=== PATIENT | female | born 1970 | race Caucasian/White ===

== ENCOUNTER 2016-04-30 13:06 | Inpatient (IN) | payer OTHER ==
[2016-04-30] MEDS ORDERED: fentaNYL* 50 MCG/ML 2 ML VIAL (100 MCG VIAL) ONE ×2 (13:30→13:35)
[2016-04-30] MEDS ORDERED: Midazolam* 1 MG/ML 10 ML VIAL (10 MG) ONE (13:35)
[2016-04-30] MEDS ORDERED: NS 0.9% 1000 ML* 1,000 ML IV ONE (13:41)
[2016-04-30 13:58] LABS: Hematocrit 42 % (35-47); Hemoglobin 14.4 g/dl (12.0-16.0); Mean Corpuscular HGB Conc 34 g/dl (31-36); Mean Corpuscular Hemoglobin 31 pg (27-31); Mean Corpuscular Volume 91 fL (80-97); Mean Platelet Volume 7 um3 (7.4-10.4); Red Blood Count 4.62 10^6/ul (4.0-5.4); Red Cell Distribution Width 13 % (10.5-15); White Blood Count 5.9 10^3/ul (3.5-10.8)
[2016-04-30 14:10] LABS: Albumin 4.6 g/dL (3.2-5.2); C Reactive Protein 4.53 mg/L (< 5.00); EGFR African American 101.8 (>60); EGFR Non-African American 79.2 (>60); Globulin 3.4 g/dL (2-4); Potassium 3.2 mmol/L (3.5-5.0); Total Bilirubin 0.5 mg/dL (0.2-1.0)
--- NOTE | 2016-04-30 14:51 | RAD ---
INDICATION: Leg and ankle pain after a fall down the steps COMPARISON: None. TECHNIQUE: 3 views of the left lower leg and 2 views of the left ankle were obtained. FINDINGS: Evaluation is slightly obscured by the patient's overlying splint. There are minimally displaced and comminuted fractures obliquely oriented involving the distal metaphyses of the left tibia and fibula. Elsewhere the bones appear to be intact. Inadequate positioning prevents reliable evaluation of the ankle mortise. Bones of the foot where visualized appear to be intact. IMPRESSION: MINIMALLY DISPLACED AND COMMINUTED OBLIQUE FRACTURES INVOLVING THE DISTAL LEFT TIBIA AND FIBULA.
[2016-04-30] MEDS ORDERED: fentaNYL* 50 MCG/ML 2 ML VIAL (100 MCG VIAL) IV SLOW PU ONE ×2 (15:16→15:25)
[2016-04-30] MEDS ORDERED: Midazolam* 1 MG/ML 10 ML VIAL (10 MG) IV ONE (15:25)
[2016-04-30] MEDS ORDERED: Propofol* 10 MG/ML 20 ML BTL IV PUSH ONE (15:46)
[2016-04-30] MEDS ORDERED: KETAMINE HCL* 50 MG/ML 10 ML VIAL ONE (15:46)
[2016-04-30] MEDS ORDERED: Lidocaine 2% PF * 5 ML VIAL ONE (15:46)
[2016-04-30] MEDS ORDERED: Dexamethasone IV* 4 MG/ML 1 ML (4 MG) ONE (15:46)
[2016-04-30] MEDS ORDERED: Ondansetron INJ* 2 MG/ML VIAL ONE (15:46)
[2016-04-30] MEDS ORDERED: Ketorolac INJ* 30 MG/ML 1 ML VIAL ONE (15:46)
[2016-04-30] MEDS ORDERED: fentaNYL* 50 MCG/ML 5 ML VIAL (250 MCG VIAL) ONE (15:46)
[2016-04-30] MEDS ORDERED: Midazolam* 1 MG/ML 5 ML VIAL (5 MG) ONE (15:46)
--- NOTE | 2016-04-30 15:46 | ED ---
Fracisco Gonzalez Karl, scribed for Gildardo King MD on 04/30/16 at 1313 . Lower Extremity - HPI Summary HPI Summary: 46 y/o F c/o an injury to her LLE. Pt is in severe pain and her left ankle/ tibia is visibly deformed through her boot. Pt stated she fell down some stairs very recently and immediately came to the ED. Pt is visibly in 10/10 severe pain. - History of Current Complaint Stated Complaint: LT LEG INJURY Hx Obtained From: Patient Mechanism Of Injury: Fall From A Standing Position - down 4 steps Onset of Pain: Immediate Onset/Duration: Still Present Severity Initially: Severe Severity Currently: Severe Pain Intensity: 10 - LLE Pain Pain Scale Used: 0-10 Numeric Timing: Constant Location: Is Discrete @ - LLE - Allergies/Home Medications Allergies/Adverse Reactions: Allergies Allergy/AdvReac Type Severity Reaction Status Date / Time Acetaminophen [From Tylenol] Allergy Nausea And Verified 09/24/12 14:06 Vomiting PMH/Surg Hx/FS Hx/Imm Hx Endocrine/Hematology History: Reports: Hx Thyroid Disease - hypothyroidism Denies: Hx Anticoagulant Therapy Respiratory History: Denies: Hx Asthma Infectious Disease History: Denies: Hx Hepatitis, Hx Human Immunodeficiency Virus (HIV) - Family History Family History: Pt is in too much pain to provide family hx - Social History Substance Use Type: Reports: None Hx Tobacco Use: No Review of Systems Constitutional: Negative Eyes: Negative ENT: Negative Cardiovascular: Negative Respiratory: Negative Gastrointestinal: Negative Genitourinary: Negative Musculoskeletal: Other - LLE pain from visibly deformed leg Skin: Negative Neurological: Negative Psychological: Normal All Other Systems Reviewed And Are Negative: Yes Physical Exam Vital Signs On Initial Exam: Initial Vitals Temp Pulse Resp BP Pulse Ox 97.3 F 96 22 158/89 100 04/30/16 13:07 04/30/16 13:07 04/30/16 13:07 04/30/16 13:07 04/30/16 13:07 Diagnostics - Vital Signs Vital Signs Temp Pulse Resp BP Pulse Ox 04/30/16 15:32 18 04/30/16 15:16 19 04/30/16 15:15 91 21 150/82 100 04/30/16 15:05 86 18 143/79 100 04/30/16 15:00 83 18 145/82 100 04/30/16 14:55 88 16 153/79 100 04/30/16 14:50 91 16 154/81 100 04/30/16 14:45 87 15 149/75 100 04/30/16 14:40 88 16 138/79 100 04/30/16 14:35 88 15 146/76 99 04/30/16 14:30 87 17 154/81 99 04/30/16 14:25 85 16 151/77 99 04/30/16 14:20 88 17 147/88 99 04/30/16 14:15 89 18 145/84 98 04/30/16 14:10 90 16 154/88 98 04/30/16 14:05 94 19 170/86 98 04/30/16 14:00 93 16 158/85 99 04/30/16 13:55 92 17 154/85 99 04/30/16 13:50 91 17 151/86 98 04/30/16 13:45 93 16 153/77 97 04/30/16 13:35 80 12 154/82 99 04/30/16 13:33 82 11 164/86 96 04/30/16 13:25 88 14 163/86 98 04/30/16 13:19 157/88 04/30/16 13:16 95 100 04/30/16 13:14 158/89 04/30/16 13:07 97.3 F 96 22 158/89 100 - Laboratory Lab Results: Lab Results 04/30/16 04/30/16 04/30/16 Range/Units 13:26 13:26 13:26 WBC 5.9 (3.5-10.8) 10^3/ul RBC 4.62 (4.0-5.4) 10^6/ul Hgb 14.4 (12.0-16.0) g/dl Hct 42 (35-47) % MCV 91 (80-97) fL MCH 31 (27-31) pg MCHC 34 (31-36) g/dl RDW 13 (10.5-15) % Plt Count 260 (150-450) 10^3/ul MPV 7 L (7.4-10.4) um3 Neut % (Auto) 67.2 (38-83) % Lymph % (Auto) 22.0 L (25-47) % White % (Auto) 9.4 H (1-9) % Eos % (Auto) 0.5 (0-6) % Baso % (Auto) 0.9 (0-2) % Absolute Neuts (auto) 4.0 (1.5-7.7) 10^3/ul Absolute Lymphs (auto) 1.3 (1.0-4.8) 10^3/ul Absolute Monos (auto) 0.6 (0-0.8) 10^3/ul Absolute Eos (auto) 0 (0-0.6) 10^3/ul Absolute Basos (auto) 0.1 (0-0.2) 10^3/ul Absolute Nucleated RBC 0 10^3/ul Nucleated RBC % 0.1 Sodium 136 (133-145) mmol/L Potassium 3.2 L (3.5-5.0) mmol/L Chloride 102 (101-111) mmol/L Carbon Dioxide 27 (22-32) mmol/L Anion Gap 7 (2-11) mmol/L BUN 7 (6-24) mg/dL Creatinine 0.78 (0.51-0.95) mg/dL Est GFR ( Amer) 101.8 (>60) Est GFR (Non-Af Amer) 79.2 (>60) BUN/Creatinine Ratio 9.0 (8-20) Glucose 88 (70-100) mg/dL Lactic Acid 1.8 (0.5-2.0) mmol/L Calcium 9.0 (8.6-10.3) mg/dL Total Bilirubin 0.50 (0.2-1.0) mg/dL AST 23 (13-39) U/L ALT 21 (7-52) U/L Alkaline Phosphatase 71 (34-104) U/L C-Reactive Protein 4.53 (< 5.00) mg/L Total Protein 8.0 (6.4-8.9) g/dL Albumin 4.6 (3.2-5.2) g/dL Globulin 3.4 (2-4) g/dL Albumin/Globulin Ratio 1.4 (1-3) Result Diagrams: 04/30/16 13:26 04/30/16 13:26 Lab Statement: Any lab studies that have been ordered have been reviewed, and results considered in the medical decision making process. - Radiology XR LLE Xray Interpretation: Positive (See Comments) Radiology Interpretation Completed By: Radiologist - IMPRESSION: MINIMALLY DISPLACED AND COMMINUTED OBLIQUE FRACTURES INVOLVING THE DISTAL LEFT TIBIA AND FIBULA. XR Left Ankle Xray Interpretation: Positive (See Comments) Radiology Interpretation Completed By: Radiologist - IMPRESSION: MINIMALLY DISPLACED AND COMMINUTED OBLIQUE FRACTURES INVOLVING THE DISTAL LEFT TIBIA AND FIBULA. Lower Extremity Course/Dx - Course Course Of Treatment: PROCEDURE NOTE: Procedural Sedation. Indications: [place] Protocol: a timeout was performed and the correct patient and site were verified. Consent: The risks and benefits of monitored anesthesia care, including the risk of aspiration, deep sedation requiring airway management including possible intubation, nausea and vomiting and the risks of not performing the procedure, including severe pain and inability to complete the procedure, were all discussed with the patient. The alternatives of performing the procedure, including local anesthesia and IV analgesia, also discussed. The patient has a ride home available. ASA Class: II-mild systemic disease. Pre- anesthesia evaluation, including history, exam, and informed consent is documented in the ED note above. Monitoring: Continuous monitoring of heart rate, respiratory rate, pulse oximetry and ETCO2. Supplemental oxygen prior to and during procedure via nasal cannula. Resuscitation equipment available at the bedside during sedation. The patient received Versed 8 mg and Fentanyl 150 mcg and dosages were recorded on the sedation form. The patient was recovered from the sedation without complication or incident. Patient returned to pre- sedation level of awareness. The monitoring was discontinued at this time. Post -anesthesia evaluation: Respiratory function, cardiovascular function, temperature, and mental status did return to pre-anesthetic state. Pain is controlled Assessment/Plan: 46 y/o F c/o an injury to her LLE. Pt is in severe pain and her left ankle/tibia is visibly deformed through her boot. Pt stated she fell down some stairs very recently and immediately came to the ED. Pt is visibly in 10/10 severe pain. Blood work WNL except for hypokalemia. She was given potassium chloride x 3 runs. CXR: No acute cardiopulmonary pathology. EKG: NSR at BPM w/o HUGO. Physical exam reveals an unstable LLE, with deformity. Good pedal pulses. Conscious sedation was performed w/o complications. Patient tolerated well the procedure. See procedure note. I place a sugar tongue cast after I stabilized the LE. She continues to have good pulses. I discussed the case with Dr. Antonio (Orthopedics) and after the review of the films he decided to admit patient to his services for surgical repair. At this point the patient is hemodynamically stable and alert and oriented x 3. - Diagnoses Differential Diagnosis/HQI/PQRI: Positive: Dislocation, Fracture (Closed), Sprain, Strain, Tendonitis Provider Diagnoses: Tibia/fibula fracture - Physician Notifications Discussed Care of Patient With: Dr. Antonio (Ortho) at 14:27 who agreed to look at the pt's imaging and call back. Dr. Antonio at 15:04 who advised admitting the pt so that she can be seen in the OR. Discharge - Discharge Plan Condition: Stable Disposition: ADMITTED TO [facility] The documentation as recorded by the Fracisco garg Karl accurately reflects the service I personally performed and the decisions made by , Gildardo King MD.
[2016-04-30] MEDS ORDERED: KCL 10 MEQ/50 ML IVPREMIX* 10 MEQ/50 ML BAG IV SCH (16:00)
[2016-04-30] MEDS ORDERED: ceFAZolin 1 GM in Dextrose (*) 1 GM/50 ML BAG IVPB SCH (16:00)
[2016-04-30] MEDS ORDERED: ceFAZolin 2 GM PREMIX (*) 2 GM/50 ML BAG IVPB ONE (16:22)
--- NOTE | 2016-04-30 16:26 | RAD ---
INDICATION: Right tib-fib fracture COMPARISON: None. TECHNIQUE: Single portable AP view of the chest was obtained. FINDINGS: Image quality is limited by the inherent inferiority of a portable chest x-ray. The heart and mediastinum exhibit normal size and contour. The lungs are grossly clear. There is no evidence of a large pleural effusion. Visualized bones are normal for the patient's age. IMPRESSION: No radiographic evidence for acute cardiopulmonary abnormality on this single AP view chest x-ray.
[2016-04-30] MEDS ORDERED: Bupivacaine 0.5% SDV PF* 30 ML VIAL ONE (16:31)
[2016-04-30] MEDS ORDERED: Famotidine IV* 10 MG/ML 2 ML (20 mg) ONE (16:32)
[2016-04-30] MEDS ORDERED: Metoclopramide IV* 5 MG/ML 2 ML VIAL ONE (17:20)
[2016-04-30] MEDS ORDERED: HYDROmorphone INJ* 1 MG/ML CARPUJECT SYRINGE ONE (17:51)
[2016-04-30] MEDS ORDERED: HYDROmorphone INJ* 1 MG/ML CARPUJECT SYRINGE IV PRN (18:26)
[2016-04-30] MEDS ORDERED: fentaNYL* 50 MCG/ML 2 ML VIAL (100 MCG VIAL) IV PRN (18:26)
[2016-04-30] MEDS ORDERED: Ondansetron INJ* 2 MG/ML VIAL IV PRN (18:26)
--- NOTE | 2016-04-30 20:22 | HP ---
HISTORY AND PHYSICAL: DATE OF ADMISSION: 04/30/16 HISTORY OF PRESENT ILLNESS: The patient was descending stairs outside of her house today at about 12:30 when she slipped and sustained a left closed tibia/ fibula fracture. This was an isolated injury and she was unable to bear weight. It was a closed injury. She was brought to the emergency room by her mother and father and now accompanied by her . She complains of pain at about an 8/10 level. She splinted and has intact sensation to the foot. Admission radiographs show a spiral junction mid third, distal third tibia/ fibula fracture. Plan at this point will be intramedullary nailing. The patient understands the nature of the surgery and the indications for the same. 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 MEDICATIONS: Her only medication is levothyroxine 125 mcg per day. ALLERGIES: She has an allergy to TYLENOL. SOCIAL HISTORY: She does not smoke. REVIEW OF SYSTEMS: She has been healthy otherwise recently with denial of chest pain, shortness of breath, abdominal distress, urination issues, diabetes , depression or anxiety. PHYSICAL EXAMINATION GENERAL: She is a healthy-appearing woman, in no acute distress. She has appropriate mood and affect. HEENT: Oropharynx is clear. NECK: Supple. CHEST: Clear to auscultation at all lung espana. I do not hear any wheezing or rales. CARDIAC: Shows prominent heart sounds. Regular rate. No extra sounds noted. ABDOMEN: Soft, large, doughy, nontender. EXTREMITIES: Shows her to have a well-splinted left tibia fracture. The toes themselves are warm and sensate. IMPRESSION: Closed tibia/fibular fracture left side. PLAN: Intramedullary nailing. This has been discussed with , parents and the patient. [id number]/[facility] #: [id number] MTDD
[2016-04-30] MEDS: oxyCODONE TAB* 5 MG TAB PO PRN (20:31)
[2016-04-30] MEDS: Enoxaparin(*) 40 MG/0.4 ML SYR SUBCUT SCH (20:32)
[2016-04-30] MEDS: Morphine INJ* 2 MG/ML 1 ML CARPUJECT IV PRN (22:40)
[2016-05-01] MEDS: oxyCODONE TAB* 5 MG TAB PO PRN ×6 (01:19→22:07)
[2016-05-01] MEDS: ceFAZolin 1 GM in Dextrose (*) 1 GM/50 ML BAG IVPB SCH ×3 (01:19→17:23)
[2016-05-01] MEDS: Ondansetron INJ* 2 MG/ML VIAL IV PRN ×2 (03:07→12:52)
[2016-05-01] MEDS: Levothyroxine TAB* 125 MCG TAB PO SCH (05:55)
[2016-05-01] MEDS ORDERED: Levothyroxine TAB (NF) 175 MCG TAB (AUTOSUB 100 MCG + 75 MCG TAB) PO SCH (06:00)
[2016-05-01] MEDS: Morphine INJ* 2 MG/ML 1 ML CARPUJECT IV PRN (08:01)
--- NOTE | 2016-05-01 09:16 | PN ---
Progress Note - Progress Note SOAP: Subjective: [Pt reports pain 8/10. Has been elevating LLE. Denies CP/SOB/nausea. Has been OOB with assistance. Denies N/T LLE.] Objective: [A and O x 3 Appears to be resting comfortably and in NAD despite rate of pain level. LLE dressing/splint C/D/I. Dressing was taken down slightly to palpate DP pulse which was 2+. Dressing then reapplied. Able to wiggle toes. Sensation intact. Vital Signs: Temp Pulse Resp BP Pulse Ox 99.7 F 105 16 125/70 99 05/01/16 07:38 05/01/16 07:38 05/01/16 09:10 05/01/16 07:38 05/01/16 07:38 Laboratory Results - last 24 hr 04/30/16 04/30/16 04/30/16 13:26 13:26 13:26 WBC 5.9 RBC 4.62 Hgb 14.4 Hct 42 MCV 91 MCH 31 MCHC 34 RDW 13 Plt Count 260 MPV 7 L Neut % (Auto) 67.2 Lymph % (Auto) 22.0 L [place] % (Auto) 9.4 H Eos % (Auto) 0.5 Baso % (Auto) 0.9 Absolute Neuts (auto) 4.0 Absolute Lymphs (auto) 1.3 Absolute Monos (auto) 0.6 Absolute Eos (auto) 0 Absolute Basos (auto) 0.1 Absolute Nucleated RBC 0 Nucleated RBC % 0.1 Sodium 136 Potassium 3.2 L Chloride 102 Carbon Dioxide 27 Anion Gap 7 BUN 7 Creatinine 0.78 Est GFR ( Amer) 101.8 Est GFR (Non-Af Amer) 79.2 BUN/Creatinine Ratio 9.0 Glucose 88 Lactic Acid 1.8 Calcium 9.0 Total Bilirubin 0.50 AST 23 ALT 21 Alkaline Phosphatase 71 C-Reactive Protein 4.53 Total Protein 8.0 Albumin 4.6 Globulin 3.4 Albumin/Globulin Ratio 1.4 ] Assessment: [s/p L tibia intramedullary nailing POD #1] Plan: [Pain management - additional meds ordered PT - NWB LLE with crutches/walker Lovenox for DVT prophylaxis Plan for D/C home tomorrow]
--- NOTE | 2016-05-01 09:38 | RAD ---
CPT II Codes: 6045F INDICATION: Traumatic tib-fib fracture TECHNIQUE: Intraoperative fluoroscopy was provided during left tibial yany fixation. FINDINGS: 3 spot films depict placement of a left tibial yany spanning the patient's distal left tibial metaphyseal fracture. Fluoroscopy time: 49 seconds IMPRESSION: As above.
[2016-05-01] MEDS: Docusate CAP* 100 MG PO PRN (09:53)
[2016-05-01] MEDS: Morphine INJ* 4 MG/ML 1 ML CARPUJECT IV PRN ×4 (09:53→22:07)
[2016-05-01] MEDS: diPHENhydraMINE PO* 25 MG PO PRN (17:29)
[2016-05-01] MEDS: Enoxaparin(*) 40 MG/0.4 ML SYR SUBCUT SCH (19:54)
--- NOTE | 2016-05-01 20:41 | OP ---
DATE OF OPERATION: 04/30/16 - ROOM #339 DATE OF : 68 SURGEON: Awais Antonio MD ANESTHESIOLOGIST: Rachid Valentin MD ANESTHESIA: General PRE-OP DIAGNOSIS: Closed midshaft left tibia fracture. POST-OP DIAGNOSIS: Closed midshaft left tibia fracture. OPERATIVE PROCEDURE: Intramedullary nailing, left tibia fracture. DESCRIPTION OF PROCEDURE: The patient was taken to the operating room, where thigh tourniquet was applied with a large C-arm for assistance. A 4-cm longitudinal incision was made anterior to the left patellar tendon. I split the tendon to allow the guidepin to be placed centrally at the proximal tibial plateau. We overreamed this to about 10 mm and then passed the ball-tip 3-mm guidepin down to the tibial plafond. This was done under C-arm guidance. We then overreamed this to 10.5 mm diameter; at 11 mm, I was not able to pass the isthmus. The patient measured 330 cm length, so a 330 cm x 9 mm titanium Synthes nail was placed down the canal to the distal tibia. This was locked proximally with a dynamic screw, distally with 2 fix screws, AP and lateral position. The proximal wound was irrigated thoroughly and closed with 0 Vicryl for the patellar tendon, 2-0 Vicryl subcutaneous and mac, the other small puncture wounds were closed with interrupted 3-0 nylon sutures. A compression dressing and plaster splint was applied. Tourniquet time was about 70 minutes. [id number]/[facility] #: [id number] [facility]ITAL[facility]
[2016-05-02] MEDS: Morphine INJ* 4 MG/ML 1 ML CARPUJECT IV PRN (00:19)
[2016-05-02] MEDS: Levothyroxine TAB* 125 MCG TAB PO SCH (05:24)
[2016-05-02] MEDS: oxyCODONE TAB* 5 MG TAB PO PRN ×5 (05:25→23:29)
[2016-05-02] MEDS: diPHENhydraMINE PO* 25 MG PO PRN ×2 (07:32→17:44)
[2016-05-02] MEDS: Docusate CAP* 100 MG PO PRN (07:32)
--- NOTE | 2016-05-02 09:02 | PN ---
Progress Note - Progress Note SOAP: Subjective: []Patient is seen at bedside. Awakened upon entering room. Still having moderate left leg pain, worse when leg in a dependent position. She is hoping to go home tomorrow. Denies SOB, chest pain or dizziness. Objective: [] Vital Signs Temp 98.0 F 05/02/16 07:25 Pulse 116 05/02/16 07:25 Resp 16 05/02/16 07:32 BP 137/60 05/02/16 07:25 Pulse Ox 84 05/02/16 07:25 Intake & Output 05/01/16 05/02/16 05/02/16 18:59 06:59 18:59 Intake Total 925 250 Output Total 1550 650 Balance -625 -400 Intake: IV Fluids 425 ABX - CEFAZOLIN 55 LR 320 Oral 500 250 Output: Urine 1550 650 Splint is dry and intact Toes pink and warm full sensation Assessment: []s/p left tibial rodding POD #2 Plan: []PT NWB left LE Lovenox for DVT prophylaxis Home later today if improved /pain managed or may hold discharge until tomorrow if not doing well and does not feel safe to be discharged.
[2016-05-02] MEDS: Ketorolac INJ* 30 MG/ML 1 ML VIAL IV PUSH PRN ×2 (10:20→16:19)
[2016-05-02] MEDS ORDERED: Magnesium Hydroxide LIQ* 30 ML UDC PO PRN (15:19)
[2016-05-02] MEDS ORDERED: Bisacodyl SUPP* 10 MG SUPP PR PRN (15:20)
[2016-05-02] MEDS: Enoxaparin(*) 40 MG/0.4 ML SYR SUBCUT SCH (19:28)
[2016-05-03] MEDS: Ketorolac INJ* 30 MG/ML 1 ML VIAL IV PUSH PRN ×2 (04:02→19:38)
[2016-05-03] MEDS: Morphine INJ* 2 MG/ML 1 ML CARPUJECT IV PRN (04:21)
[2016-05-03] MEDS: Levothyroxine TAB* 125 MCG TAB PO SCH (06:05)
--- NOTE | 2016-05-03 08:02 | PN ---
Progress Note - Progress Note SOAP: Subjective: []Patient seen at bedside. Had a fever of 102.1 overnight. She denies feeling short or breath, denies chest pain or palpitations. [place] dizzy yesterday when she was up and out of bed. Pain is much better with the Toradol. Objective: [] Vital Signs Temp 98.1 F 05/03/16 06:02 Pulse 110 05/03/16 06:02 Resp 16 05/03/16 06:02 BP 99/52 05/03/16 06:02 Pulse Ox 93 05/03/16 06:02 Intake & Output 05/02/16 05/03/16 05/03/16 18:59 06:59 18:59 Intake Total 250 980 Output Total 2350 500 Balance -2100 480 Intake: Oral 250 980 Output: Urine 2350 500 left leg elevated on pillows splint is dry and intact toes are pink and warm, able to wiggle in splint mild warmth distal quad area, very mild pink tinge to skin, no fabby erythema, no tenderness Assessment: []s/p IM rodding left tibia fracture POD #3 Mild tachycardia and decreased pulse ox, fever resolved Plan: []STAT CT chest to rule out pulmonary embolism CBC Await results, if negative and patient remains asymptomatic will consider possible discharge home this afternoon.
[2016-05-03] MEDS ORDERED: Iohexol 350* (CONTRAST) 500 ML MDV IV ONE (08:04)
[2016-05-03] MEDS: oxyCODONE TAB* 5 MG TAB PO PRN ×4 (08:30→23:51)
[2016-05-03 08:53] LABS: Hematocrit 32 % (35-47); Hemoglobin 11.1 g/dl (12.0-16.0); Mean Corpuscular HGB Conc 34 g/dl (31-36); Mean Corpuscular Hemoglobin 31 pg (27-31); Mean Corpuscular Volume 91 fL (80-97); Mean Platelet Volume 8 um3 (7.4-10.4); Red Blood Count 3.55 10^6/ul (4.0-5.4); Red Cell Distribution Width 13 % (10.5-15); White Blood Count 11.9 10^3/ul (3.5-10.8)
--- NOTE | 2016-05-03 09:41 | RAD ---
HISTORY: Chest pain, rule out PE COMPARISONS: None TECHNIQUE: Multiple contiguous axial CT scans of the chest were obtained after the administration of nonionic intravenous contrast, timed to the pulmonary arterial phase of contrast enhancement.. Coronal and sagittal multiplanar reformations are also submitted for review. FINDINGS: The study is limited by patient breathing motion artifact and suboptimal opacification of the pulmonary arterial tree NECK AND THYROID: The lower neck and thyroid are unremarkable. CHEST WALL: There is no lower cervical, axillary, or supraclavicular lymphadenopathy by size criteria. HEART AND PERICARDIUM: The heart is unremarkable. AORTA AND PULMONARY VASCULATURE: There is no pulmonary arterial filling defect to suggest pulmonary embolism. There is no linear filling defect within the aorta to suggest aortic dissection. MEDIASTINUM: There is no mediastinal lymphadenopathy by size criteria. SRINI: There is no hilar lymphadenopathy by size criteria. AIRWAY AND ESOPHAGUS: The airway is unremarkable, without endobronchial filling defect. The esophagus is grossly normal. LUNG PARENCHYMA: There is a 0.7 cm nodule within the right upper lobe on axial image 23. There is patchy ground less opacification of the lung bases bilaterally. PLEURA: No pleural abnormalities are noted. UPPER ABDOMEN: The upper abdomen is unremarkable. BONES AND SOFT TISSUES: No bone or soft tissue abnormalities are noted. OTHER: None. IMPRESSION: 1. LIMITED STUDY. 2. WITHIN THE LIMITATIONS OF STUDY, THERE IS NO PULMONARY ARTERIAL FILLING DEFECT TO SUGGEST PULMONARY EMBOLISM. 3. 0.7 CM NODULE OF THE RIGHT UPPER LOBE. THE RECOMMENDATIONS FOR FOLLOWUP AND MANAGEMENT OF AN INCIDENTALLY DETECTED PULMONARY NODULE GREATER THAN 6 MM BUT LESS THAN OR EQUAL TO 8 MM IN SIZE, IN A PATIENT WITHOUT A HISTORY OF MALIGNANCY, INCLUDE FOLLOWUP CT IN 6-12 MONTHS, THEN AGAIN AT 18-24 MONTHS FOR A LOW-RISK PATIENT OR FOLLOWUP CT IN 3-6 MONTHS, THEN 9-12, THEN AGAIN AT 24 MONTHS FOR A HIGH RISK PATIENT. NOTES: SIZE = AVERAGE LENGTH AND WIDTH; HIGH RISK IS DEFINED A HISTORY OF SMOKING OR OTHER KNOW RISK FACTORS FOR LUNG CANCER; LOW RISK IS DEFINED MINIMAL OR ABSENT HISTORY OF SMOKING OR OTHER KNOWN RISK FACTORS. NODULES WITH A GROUND GLASS COMPONENT MAY REQUIRE LONGER FOLLOW UP TO EXCLUDE INDOLENT ADENOCARCINOMA.
[2016-05-03 14:07] LABS: Urine Bacteria Absent (Absent); Urine Bilirubin Negative (Negative); Urine Glucose Negative (Negative); Urine Nitrite Negative (Negative)
[2016-05-03 14:19] LABS: BUN/Creatinine Ratio 11.9 (8-20); Calcium 8.3 mg/dL (8.6-10.3); EGFR African American 121.3 (>60); EGFR Non-African American 94.3 (>60)
[2016-05-03 14:21] LABS: Troponin I 0.03 ng/mL (<0.04)
--- NOTE | 2016-05-03 15:41 | RAD ---
INDICATION: Immobility secondary to recent trauma. LEFT tib-fib fracture requiring internal fixation. COMPARISON: None. TECHNIQUE: Palomares scale, color Doppler, and spectral analysis of the deep veins of the bilateral lower extremities. Vessel compression, phasicity, and augmentation assessed. REPORT: The right common femoral, great saphenous, profunda femoral, femoral, popliteal, peroneal, and posterior tibial veins are patent. Assessment of the LEFT lower extremity deep veins is precluded distal to the distal segment of the femoral vein due to the overlying cast as well as soft tissue edema. Patent LEFT common femoral, great saphenous, profunda femoral, and femoral veins documented. IMPRESSION: 1. No evidence for RIGHT lower extremity deep venous thrombosis. 2. Limited assessment of the LEFT lower extremity deep veins as described with venous patency documented as far distal as the distal segment of the femoral vein.
[2016-05-03] MEDS ORDERED: Potassium Chlor TAB* 20 MEQ TAB.ER PO ONE (16:57)
[2016-05-03] MEDS: Enoxaparin(*) 40 MG/0.4 ML SYR SUBCUT SCH (19:37)
--- NOTE | 2016-05-04 03:49 | CONS ---
CONSULTATION REPORT: DATE OF CONSULT: 05/03/16 PRIMARY CARE PROVIDER: Dr. Berna Hickman. ATTENDING PHYSICIAN WHILE IN THE HOSPITAL: Dr. Jaycob Zabala (report dictated by Tyler Kathleen NP). REQUESTING PHYSICIAN FOR CONSULTATION: Dr. Antonio. REASON FOR MEDICAL CONSULTATION: Evaluation of fever. HISTORY OF PRESENT ILLNESS: Ms. Cortez is a 46-year-old female patient that presented to Orthopedic services on the day of April 30 for a fall, was found to ultimately have a closed tibia-fibula fracture. The patient states that she was walking out the front door and the next thing she remembers she had fallen and noticed that her ankle did not appear to look right to her. So, she immediately came in to the hospital to be evaluated and felt that she would require surgery. She underwent surgery on the . It was noted postoperatively that she has been spiking fever. She had a fever of 100.3 on the and then, she spiked a fever last night on the in the morning of 102.6. We are asked to evaluate. 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 She is exposed to several people who had URIs recently. She says prior to coming in she did not have any URI symptoms or any cough or sore throat , but she does state that she has noticed now. Postoperatively, she has been coughing more. It hurts for her to take a deep breath. She does state that it hurts when she coughs particularly in her chest and she has been bringing up some yellow sputum. She denies any abdominal pain. No back pain. She denies any dysuria or any frequency. The patient states that she does feel like she has been aching all over, particularly since the surgery. She denies again any chest pain at rest, but she does state that it hurts to take a deep breath and that she denies any sore throat or rhinorrhea. There has been no vomiting. There was concern because of the fever and we were asked to evaluate for the fever. PAST MEDICAL HISTORY: Significant for hypothyroidism. SURGICAL HISTORY: 1. The patient has a history of hysterectomy. 2. Tubal ligation. 3. ORIF, left lower extremity. 4. Neck surgery. 5. Tonsillectomy. HOME MEDICATIONS: According to the patient include: 1. Synthroid 125 mcg p.o. daily. 2. Aspirin 325 mg daily. 3. Oxycodone 5 mg p.o. every 4 hours as needed. ALLERGIES TO MEDICATIONS: Include TYLENOL. FAMILY HISTORY: Her mother has Raynaud's disease. Father has a history of heart disease. SOCIAL HISTORY: She does not smoke. She does not drink. Surrogate decision maker is her mother. She is legally . REVIEW OF SYSTEMS: There is a documented fever. She denied any significant weight change. There was no double vision. She denies having any ear discharge. There is no rhinorrhea. No sore throat. No thyroid enlargement. She denies having any chest pain. There is no orthopnea. There is no nocturnal dyspnea. There is no abdominal pain. There is no nausea. No vomiting. No dysuria. No frequency. No seizure. No loss of consciousness. No pruritus. No skin ulcerations. Review of 14 systems completed, all others negative. PHYSICAL EXAMINATION: Reveals vital signs of blood pressure 103/51, pulse of 100, respirations 18, O2 saturation of 100%, temperature now is 97.8. Last documented fever was this morning at 3:51 in the morning; it showed a temperature of 102.6. General: At this time, Ms. Cortez is a 46-year-old female patient. She appears to be well nourished, well developed. She is sitting in the postsurgical bed and does not appear to be in any acute distress. HEENT: Head: Atraumatic, normocephalic. Eyes: EOMs intact. Sclerae are anicteric and not pale. Throat: Oral mucosa appears to be moist. No oropharyngeal erythema. Neck: Supple. Heart: Sounds S1, S2. Regular rate and rhythm. She is tachycardic at a rate of 100. Lungs: Clear to auscultation bilaterally. No wheezes, rales, or rhonchi. Abdomen: Soft, flat , nontender. Bowel sounds present. Extremities: Pulses 2+ throughout. Distal CSM checks are intact. In the left lower extremity, there is a cast there. She is able to move her other 3 extremities with 5/5 strength. Neurologically, she is awake, alert, and oriented x3. Tongue midline. Sail Finisher Machine are equal. No gross focal deficits. The skin is grossly intact. DIAGNOSTIC STUDIES/LAB DATA: Today reveal WBC of 11.9, RBC of 3.55, hemoglobin 11.2, hematocrit 32. Chemistries from the reveal a sodium of 136, potassium of 3.2, chloride of 102, bicarb 27, BUN 7, creatinine of 0.78, glucose of 88, lactic 1.8. AST 23, ALT 21, CRP of 4.52. She had a chest-thorax CTA done last night which revealed limited study with 0.7 -cm nodule in the right upper lobe. Recommendations for followup and management of this incidentally detected pulmonary nodule greater than 6 mm but less than or equal to 8 mm in size in a patient without a history of lung cancer risk factors include followup in 6 to 12 months, again 18 to 24 months or in a patient with risk factors , followup in 3 or 6 months and 9 to 12, then at 24 for high risk patient. She did have a chest x-ray preop which showed no radiographic evidence for acute cardiopulmonary abnormality. She had a lower extremity x-ray which showed minimally displacing comminuted oblique fracture involving the distal left tibia and fibula. Ankle x-ray showed minimally displaced comminuted oblique fracture involving the distal left tibia-fibula. Old medical records were reviewed. ASSESSMENT AND PLAN: Ms. Cortez is a 46-year-old female patient coming into the Orthopedic services for a left tibia-fibula fracture, now having postoperative fevers. We were asked to evaluate in consult. Recommendations at this point are: 1. Status post open reduction and internal fixation, left tibia-fibula: I will defer the management to Dr. Antonio's team. 2. Fever: Etiology is unclear. Certainly, this can be viral. She does have exposure to children and adults with URI symptoms her job with upper respiratory infection symptoms. So, this could be a viral illness. I do think that we should panculture her, get a sputum, flu swab. In addition to this, blood cultures and also get urine Legionella and strep pneumonia antigen as well and continue to follow. Encourage aggressive incentive spirometry as well. I am also getting an ultrasound of both of her lower extremities to make sure there is no DVT causing this. 3. Chest discomfort: Again, this is very atypical as it is worse taking a deep breath which would go along with an upper respiratory infection such as bronchitis. She has been noticing this over the last 12 hours. I am going to cycle troponin to be on the cautious side and get an EKG as well though I think this is less likely. It is most likely related to pulmonary infection such as bronchitis or viral illness. We will monitor. 4. Hypothyroidism: Continue her Synthroid. 5. Code status: Full code. 6. Fluids, electrolytes, and nutrition: She can have a regular diet. TIME SPENT: Time spent on the consult was 60 minutes; greater than half the time was spent [id number] with the patient obtaining my history and physical, other half the time spent going over the plan of care with the patient and implementing plan of care. I did discuss the plan of care with my attending, Dr. Zabala; he is in agreement. TYLER KATHLEEN NP CC: Dr. Berna Hickman; Dr. Antonio * [id number]/CPS #: [id number] MTDD
[2016-05-04] MEDS: oxyCODONE TAB* 5 MG TAB PO PRN ×3 (05:51→14:16)
[2016-05-04] MEDS: Levothyroxine TAB* 125 MCG TAB PO SCH (05:51)
[2016-05-04 06:22] LABS: EGFR African American 155.6 (>60); Potassium 3.8 mmol/L (3.5-5.0)
[2016-05-04 07:31] LABS: Hematocrit 30 % (35-47); Hemoglobin 10.3 g/dl (12.0-16.0); Mean Corpuscular HGB Conc 34 g/dl (31-36); Mean Corpuscular Hemoglobin 32 pg (27-31); Mean Corpuscular Volume 92 fL (80-97); Mean Platelet Volume 7 um3 (7.4-10.4); Red Blood Count 3.29 10^6/ul (4.0-5.4); Red Cell Distribution Width 13 % (10.5-15); White Blood Count 7.3 10^3/ul (3.5-10.8)
--- NOTE | 2016-05-04 09:17 | PN ---
Subjective Date of Service: 05/04/16 Interval History: Pt is feeling ok. She continues to have mild R sided chest discomfort. Her pain has been under fairly good control. She denies any SOB. She has not coughed up any more sputum. Objective Active Medications: Bisacodyl (Dulcolax Supp*) 10 mg TN DAILY PRN PRN Reason: CONSTIPATION Diphenhydramine HCl (Benadryl Po*) 25 mg PO Q6H PRN PRN Reason: ITCHING Last Admin: 05/02/16 17:44 Dose: 25 mg Docusate Sodium (Colace Cap*) 100 mg PO DAILY PRN PRN Reason: CONSTIPATION Last Admin: 05/02/16 07:32 Dose: 100 mg Enoxaparin Sodium (Lovenox(*)) 40 mg SUBCUT Q24H [facility] Last Admin: 05/03/16 19:37 Dose: 40 mg Lactated Ringer's (Lactated Ringers 1000 Ml Bag*) 1,000 mls @ 100 mls/hr IV PER RATE [facility] Last Admin: 05/01/16 05:58 Dose: 100 mls/hr Ketorolac Tromethamine (Toradol Inj*) 30 mg IV PUSH Q6H PRN PRN Reason: PAIN Last Admin: 05/03/16 19:38 Dose: 30 mg Levothyroxine Sodium (Synthroid Tab*) 125 mcg PO 0600 [facility] Last Admin: 05/04/16 05:51 Dose: 125 mcg Magnesium Hydroxide (Milk Of Magnesia Liq*) 30 ml PO Q6H PRN PRN Reason: CONSTIPATION Morphine Sulfate (Morphine Inj (Syringe)*) 2 mg IV Q2H PRN PRN Reason: PAIN - MODERATE TO SEVERE Last Admin: 05/03/16 04:21 Dose: 2 mg Morphine Sulfate (Morphine Inj (Syringe)*) 4 mg IV Q2H PRN PRN Reason: PAIN Last Admin: 05/02/16 00:19 Dose: 4 mg Ondansetron HCl (Zofran Inj*) 4 mg IV Q4H PRN PRN Reason: NAUSEA/VOMITING Last Admin: 05/01/16 12:52 Dose: 4 mg Oxycodone HCl (Roxycodone Tab*) 5 mg PO Q4H PRN PRN Reason: PAIN SCALE 6-10 Last Admin: 05/01/16 09:10 Dose: 10 mg Oxycodone HCl (Roxycodone Tab*) 10 mg PO Q4H PRN PRN Reason: PAIN - MODERATE TO SEVERE Last Admin: 05/04/16 05:51 Dose: 10 mg Vital Signs 05/03/16 05/03/16 05/03/16 10:30 11:49 12:33 Temperature 97.8 F Pulse Rate 100 Respiratory 16 18 16 Rate Blood Pressure 103/51 (mmHg) O2 Sat by Pulse 100 Oximetry 05/03/16 05/03/16 05/03/16 14:33 15:15 15:26 Temperature 98.7 F Pulse Rate 106 Respiratory 16 12 Rate Blood Pressure 122/65 (mmHg) O2 Sat by Pulse 96 86 Oximetry 05/03/16 05/03/16 05/03/16 15:45 16:59 18:57 Temperature Pulse Rate Respiratory 18 16 Rate Blood Pressure (mmHg) O2 Sat by Pulse 96 Oximetry 05/03/16 05/03/16 05/03/16 19:33 20:00 23:43 Temperature 100.7 F 98.0 F Pulse Rate 112 93 Respiratory 16 18 16 Rate Blood Pressure 111/60 103/54 (mmHg) O2 Sat by Pulse 96 99 Oximetry 05/03/16 05/04/16 05/04/16 23:51 01:51 03:23 Temperature 97.6 F Pulse Rate 95 Respiratory 20 16 16 Rate Blood Pressure 99/54 (mmHg) O2 Sat by Pulse 93 Oximetry 05/04/16 05/04/16 05/04/16 05:51 07:15 07:24 Temperature 98.6 F Pulse Rate 107 Respiratory 20 16 18 Rate Blood Pressure 112/60 (mmHg) O2 Sat by Pulse 95 Oximetry 05/04/16 07:51 Temperature Pulse Rate Respiratory 16 Rate Blood Pressure (mmHg) O2 Sat by Pulse Oximetry Oxygen Devices in Use Now: None Appearance: Middle aged female sitting up in bed, NAD Eyes: No Scleral Icterus Ears/Nose/Mouth/Throat: Mucous Membranes Moist Respiratory: Symmetrical Chest Expansion and Respiratory Effort, Clear to Auscultation - few fine bibasilar crackles Cardiovascular: NL Sounds; No Murmurs; No JVD, No Edema, - - mildly tachycardic but regular Abdominal: NL Sounds; No Tenderness; No Distention Extremities: No Clubbing, Cyanosis, - - L lower leg in cast to the knee Skin: No Rash or Ulcers, No Nodules or Sclerosis Neurological: Alert and Oriented x 3 Result Diagrams: 05/04/16 07:02 05/04/16 05:38 Additional Lab and Data: Lab Results 04/30/16 04/30/16 04/30/16 Range/Units 13:26 13:26 13:26 WBC 5.9 (3.5-10.8) 10^3/ul RBC 4.62 (4.0-5.4) 10^6/ul Hgb 14.4 (12.0-16.0) g/dl Hct 42 (35-47) % MCV 91 (80-97) fL MCH 31 (27-31) pg MCHC 34 (31-36) g/dl RDW 13 (10.5-15) % Plt Count 260 (150-450) 10^3/ul MPV 7 L (7.4-10.4) um3 Neut % (Auto) 67.2 (38-83) % Lymph % (Auto) 22.0 L (25-47) % [place] % (Auto) 9.4 H (1-9) % Eos % (Auto) 0.5 (0-6) % Baso % (Auto) 0.9 (0-2) % Absolute Neuts (auto) 4.0 (1.5-7.7) 10^3/ul Absolute Lymphs (auto) 1.3 (1.0-4.8) 10^3/ul Absolute Monos (auto) 0.6 (0-0.8) 10^3/ul Absolute Eos (auto) 0 (0-0.6) 10^3/ul Absolute Basos (auto) 0.1 (0-0.2) 10^3/ul Absolute Nucleated RBC 0 10^3/ul Nucleated RBC % 0.1 Sodium 136 (133-145) mmol/L Potassium 3.2 L (3.5-5.0) mmol/L Chloride 102 (101-111) mmol/L Carbon Dioxide 27 (22-32) mmol/L Anion Gap 7 (2-11) mmol/L BUN 7 (6-24) mg/dL Creatinine 0.78 (0.51-0.95) mg/dL Est GFR ( Amer) 101.8 (>60) Est GFR (Non-Af Amer) 79.2 (>60) BUN/Creatinine Ratio 9.0 (8-20) Glucose 88 (70-100) mg/dL Lactic Acid 1.8 (0.5-2.0) mmol/L Calcium 9.0 (8.6-10.3) mg/dL Total Bilirubin 0.50 (0.2-1.0) mg/dL AST 23 (13-39) U/L ALT 21 (7-52) U/L Alkaline Phosphatase 71 (34-104) U/L C-Reactive Protein 4.53 (< 5.00) mg/L Total Protein 8.0 (6.4-8.9) g/dL Albumin 4.6 (3.2-5.2) g/dL Globulin 3.4 (2-4) g/dL Albumin/Globulin Ratio 1.4 (1-3) Microbiology and Other Data: Microbiology 05/03/16 10:10 Urine Culture - Final Urine No Growth (<1,000 CFU/mL) 05/03/16 13:41 Legionella Urinary Antigen - Final Urine Negative Legionella Streptococcus pneumoniae Ag Screen - Final Negative S. pneumo Antigen 05/03/16 13:50 Influenza Types A,B Antigen (ANA) - Final Nasal Specimen received for Influenza A/B Molecular testing Assess/Plan/Problems-Billing Ms Diego Chaidez is a 46 yo F who has a h/o hypothyroidism and presented to the ER with c/o L ankle pain s/p falling down concrete stairs and was found to have L tib/fib fractures. - Patient Problems (1) Fracture of left tibia and fibula Current Visit: Yes Status: Acute Code(s): S82.202A - UNSP FRACTURE OF SHAFT OF LEFT TIBIA, INIT FOR CLOS FX; S82.402A - UNSP FRACTURE OF SHAFT OF LEFT FIBULA, INIT FOR CLOS FX SNOMED Code(s): 20179149 Comment: Management per orthopedics. (2) Fever Current Visit: Yes Status: Acute Code(s): R50.9 - FEVER, UNSPECIFIED SNOMED Code(s): 657211363 Comment: The patient had a fever last night of 100.7. She remains mildly tachycardic. No clear source of infection except for mild cough. I suspect the fever is secondary to a viral URI however I am concerned about her persistent tachycardia. I do not think the tachycardia is secondary to pain as she states her pain has been under fair control. I would at least monitor the patient until later this evening but ideally until tomorrow to ensure her fever has completely resolved and her tachycardia improves. No signs of PE/DVT though both studies were limited. (3) Hypothyroidism Current Visit: Yes Status: Acute Code(s): E03.9 - HYPOTHYROIDISM, UNSPECIFIED SNOMED Code(s): 72039032 Comment: Continue current dose of synthroid. (4) DVT prophylaxis Current Visit: Yes Status: Acute Code(s): NBT9607 - SNOMED Code(s): 117722732 Comment: lovenox (5) Full code status Current Visit: Yes Status: Acute Code(s): Z78.9 - OTHER SPECIFIED HEALTH STATUS SNOMED Code(s): 476608436
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
[2016-05-04 11:52] VITALS: BP 118/63
--- NOTE | 2016-05-05 12:50 | DS ---
DISCHARGE SUMMARY: DATE OF ADMISSION: 04/30/16 DATE OF DISCHARGE: 05/04/16 ATTENDING PHYSICIAN: Awais Antonio MD ADMISSION DIAGNOSIS: Fracture of the left tibia and fibula. DISCHARGE DIAGNOSES: 1. Fracture of the left tibia and fibula. 2. Postoperative fever. SURGERY PERFORMED: Intramedullary nailing of the left tibial shaft. HOSPITAL COURSE: The patient is a 46-year-old female who fell downstairs at her home sustaining a fracture of the left tibia and fibula. She was evaluated in the emergency department on April 30 and was admitted to the service of Dr. Awais Antonio. It was felt she would best benefit from surgical fixation of her fracture. Risks and benefits of the procedure were discussed with the patient and she elected to proceed with surgical intervention. She was taken to the operating room under the care of Dr. Antonio on the date of 04/30/16 for the aforementioned procedure. She tolerated the procedure well and left the operating room in stable condition. Postoperatively, she had moderate-to- severe pain on postoperative day #1, did not feel stable for discharge to home. On the night of the 03 of May, the patient spiked a temperature to 102 and had chills and was tachycardic with mild decrease in her oxygen saturations running into the mid 90s. Due to these findings, a CT of the chest was ordered and was found to be negative for evidence of pulmonary embolism. She continued to have a mild temperature and was tachycardic with a white count of 16.1; therefore, medical consultation was sought. She was seen by the [facility] and further tests including urinalysis and antigen for flu were obtained. All of her findings were negative for evidence of infection. It was found that she had an incidental pulmonary nodule seen on her chest CT. The patient defervesced. Her pain was under good control with Roxicodone and Toradol and she progressed satisfactorily with the physical therapy and occupational therapy goals remaining nonweightbearing on the left lower extremity. It was felt that the patient would be stable for discharge to home in the afternoon of the 04 of May if she remained afebrile for 24 hours. The patient is feeling well and has remained afebrile and would like to be discharged home today. CONDITION ON DISCHARGE: The patient is afebrile with a temperature of 97.9 Fahrenheit, respiratory rate 18, pulse 107, and blood pressure 118/63. The left lower extremity splint is clean and dry. Good CMS to the toes of the left lower extremity. MEDICATIONS: The patient will continue with her thyroid medication. She will take aspirin 325 mg p.o. daily and a prescription of Roxicodone 5 mg tablets 1 to 2 p.o. q.4 hours p.r.n. pain was called into her pharmacy at [facility]. PLAN: The patient will be discharged home. She will remain nonweightbearing on the left lower extremity, elevate her leg above her heart several hours per day. Continue with the aspirin, Roxicodone, and occasionally ibuprofen or Aleve as needed for pain and swelling. She will follow up with Dr. Antonio in the office in 7 to 10 days. SHANIKA REYNAGA [id number]/RADHA #: [id number] MTDPaco
== END 2016-05-04 15:10 | disposition home or self-care (01) | DRG 494 ==
LOC: ED 13:06 → OR 16:09 → SSU 18:28 → OBSVTOIN 05-02 14:00
PROVIDERS: ADMIT Orthopaedic Surgery; ATTEND Orthopaedic Surgery
PROC: 0QHH34Z Insertion of Internal Fixation Device into Left Tibia, Percutaneous Approach (ICD-10-PCS; principal; 2016-04-30 16:00)
DX: S82.252A Displaced comminuted fracture of shaft of left tibia, initial encounter for closed fracture (principal); E03.9 Hypothyroidism, unspecified; S82.452A Displaced comminuted fracture of shaft of left fibula, initial encounter for closed fracture; R50.9 Fever, unspecified; J06.9 Acute upper respiratory infection, unspecified; W10.8XXA Fall (on) (from) other stairs and steps, initial encounter; Y92.009 Unspecified place in unspecified non-institutional (private) residence as the place of occurrence of the external cause; Z79.82 Long term (current) use of aspirin; Z79.891 Long term (current) use of opiate analgesic; Z79.899 Other long term (current) drug therapy; Z88.6 Allergy status to analgesic agent; Z82.49 Family history of ischemic heart disease and other diseases of the circulatory system
CPT/HCPCS: 36415; 71010; 71275; 76001; 80048; 80053; 81003; 81015; 83605; 84145; 84484; 85025; 86140; 87040; 87086; 87502; 87899; 93005; 93970; A9270-GY; C1713; C1776; G0378; G8978-GP-CL; G8979-GP-CK; J0690; J1100; J1170; J1650; J1885; J2250; J2270; J2405; J2704; J2765; J3010; Q9967

== ENCOUNTER 2019-03-25 12:28 | Day surgery (SDC) | payer OTHER ==
[~2019-03-25 12:28] MED LIST: Buffered Lidocaine 1% SYRIN* 1 ML/SYRINGE INTRADERM ONE; Dexamethasone IV* 4 MG/ML 1 ML (4 MG) IV SLOW PU ONE; Famotidine IV* 10 MG/ML 2 ML (20 mg) IV ONE; Lactated Ringers 1000 ML Bag* 1,000 ML IV SCH
[2019-03-25] MEDS ORDERED: Dexamethasone IV* 4 MG/ML 1 ML (4 MG) ONE (12:47)
[2019-03-25] MEDS ORDERED: Famotidine IV* 10 MG/ML 2 ML (20 mg) ONE (12:48)
[2019-03-25] MEDS ORDERED: ceFAZolin 2 GM in NS PREMIX(*) 2 GM/100 ML BAG IVPB ONE (12:48)
[2019-03-25] MEDS ORDERED: Buffered Lidocaine 1% SYRIN* 1 ML/SYRINGE INTRADERM ONE (12:48)
[2019-03-25] MEDS ORDERED: fentaNYL* 50 MCG/ML 2 ML VIAL (100 MCG VIAL) ONE ×4 (13:12→16:05)
[2019-03-25] MEDS ORDERED: Lidocaine 2% PF * 5 ML VIAL ONE (13:13)
[2019-03-25] MEDS ORDERED: Bupivacaine 0.5%* 50 ML MDV VIAL ONE (13:25)
[2019-03-25] MEDS ORDERED: Lidocaine 2% PF* 10 ML AMP ONE (13:26)
[2019-03-25] MEDS ORDERED: Midazolam* 1 MG/ML 2 ML VIAL (2 MG) ONE (13:48)
[2019-03-25] MEDS ORDERED: Propofol* 10 MG/ML 20 ML BTL ONE (13:49)
[2019-03-25] MEDS ORDERED: KETAMINE HCL* 50 MG/ML 10 ML VIAL ONE (14:21)
[2019-03-25] MEDS ORDERED: Ketorolac INJ* 30 MG/ML 1 ML VIAL ONE (14:33)
[2019-03-25] MEDS ORDERED: Ondansetron INJ* 2 MG/ML VIAL ONE (14:33)
[2019-03-25] MEDS ORDERED: HYDROmorphone INJ1* 1 MG/ML SYRINGE IV PRN (15:27)
[2019-03-25] MEDS ORDERED: DiMENhydriNATE IV* 50 MG/ML VIAL IV PUSH PRN (15:27)
[2019-03-25] MEDS ORDERED: Naloxone* 0.4 MG/ML 1 ML VIAL IV PRN (15:27)
[2019-03-25] MEDS: fentaNYL* 50 MCG/ML 2 ML VIAL (100 MCG VIAL) IV PRN ×3 (15:36→16:08)
[2019-03-25] MEDS ORDERED: oxyCODONE TAB* 5 MG TAB ONE (16:30)
[2019-03-25] MEDS ORDERED: DiMENhydriNATE IV* 50 MG/ML VIAL ONE (16:45)
[2019-03-25 16:55] VITALS: BP 157/92
--- NOTE | 2019-03-25 23:30 | OP ---
DATE OF OPERATION: 03/25/19 - [facility] DATE OF : 68 SURGEON: Awais Antonio MD MARINE ENGINEER: SHANIKA Watt PRE-OP DIAGNOSIS: Painful hardware, left knee and tibia. POST-OP DIAGNOSIS: Painful hardware, left knee and tibia. OPERATIVE PROCEDURE: Removal of Synthes tibial nail, left tibia. DESCRIPTION OF PROCEDURE: The patient was taken to the operating room where thigh tourniquet was inflated. A mid longitudinal incision over the anterior patellar tendon and then split the tendon using a #10 blade. The nail was identified in the subcutaneous tissue and cannulated with the threaded nail remover slide bolt. Percutaneously , we identified the three locking screws, removing them with the appropriate star screwdriver. We then pounded the nail out proximally. There was no damage to the patella but just a slight progression of the split in the patellar tendon. All four wounds were irrigated thoroughly. We repaired the patellar tendon with #1 Vicryl interrupted sutures. 2-0 Monocryl for the subcu and mac for the skin. The smaller stab wounds were closed with 3-0 Monocryl and staple. There was a compression dressing then applied as well as the knee immobilizer. [id number]/[facility] #: [id number] MIT[place]LL
== END 2019-03-25 17:30 | disposition home or self-care (01) ==
LOC: OR 12:28
PROVIDERS: ATTEND Orthopaedic Surgery
DX: T84.84XA Pain due to internal orthopedic prosthetic devices, implants and grafts, initial encounter (principal); Y83.1 Surgical operation with implant of artificial internal device as the cause of abnormal reaction of the patient, or of later complication, without mention of misadventure at the time of the procedure; S82.102D Unspecified fracture of upper end of left tibia, subsequent encounter for closed fracture with routine healing; X58.XXXD Exposure to other specified factors, subsequent encounter; Y92.9 Unspecified place or not applicable; E03.9 Hypothyroidism, unspecified; Z68.34 Body mass index [BMI] 34.0-34.9, adult
CPT/HCPCS: 88300; A9270-GY; J0690; J1100; J1240; J1885; J2001; J2250; J2405; J2704; J3010; J3490